=== PATIENT | female | born 1970 | race Caucasian/White ===

== ENCOUNTER 2016-09-10 21:33 | Emergency (ER) | payer MEDICARE ==
[2016-09-10 21:47] VITALS: BP 115/75; PULSE 88; RESP 20; TEMP 98.1; O2SAT 97
--- NOTE | 2016-09-10 21:58 | C.PDOC ---
History Of Present Illness 46 y/o female c/o left heel pain x 3 days. getting worse, not relieved by tylenol. no injury or trauma. no fever., no swelling to foot. Time Seen by Provider: 09/10/16 21:49 Chief Complaint (Nursing): Lower Extremity Problem/Injury History Per: Patient History/Exam Limitations: no limitations Onset/Duration Of Symptoms: Days (3) Current Symptoms Are (Timing): Worse Severity: Moderate Recent travel outside of the [place]: No Past Medical History Reviewed: Historical Data, Nursing Documentation, Vital Signs Vital Signs: Last Vital Signs Temp 98.1 F 09/10/16 21:43 Pulse 88 09/10/16 21:43 Resp 20 09/10/16 21:43 BP 115/75 09/10/16 21:43 Pulse Ox 97 09/10/16 22:23 - Medical History PMH: Anemia (post gastric bypass) Other Surgeries: tubal ligation Family History: States: Unknown Family Hx - Social History Hx Alcohol Use: No Hx Substance Use: No - Immunization History Hx Tetanus Toxoid Vaccination: No Hx Influenza Vaccination: Yes Hx Pneumococcal Vaccination: No Review Of Systems Constitutional: Negative for: Fever, Chills Musculoskeletal: Positive for: Foot Pain (left), Other (no calf tenderness,) Skin: Negative for: Rash Neurological: Negative for: Weakness, Numbness Physical Exam - Physical Exam Appears: Non-toxic, No Acute Distress Skin: Warm, Dry Head: Atraumatic, Normacephalic Extremity: Left: Bony Point Tenderness (left heel ), Painful To Bear Weight, Bilateral: No Pedal Edema, Normal Color And Temperature, Normal ROM, Pelvis- Stable Pulses: Left Dorsalis Pedis: Normal, Right Dorsalis Pedis: Normal Neurological/Psych: Oriented x3, Normal Speech, Normal Cognition, Normal Motor, Normal Sensation ED Course And Treatment O2 Sat by Pulse Oximetry: 97 Medical Decision Making Medical Decision Making: pt tender to heel on left and right side as well as sole:possible plantar faciitis or heel spur- willl tx with nsaids and podiatry outpatient Disposition Counseled Patient/Family Regarding: Diagnosis, Need For Followup, Rx Given - Disposition Referrals: Podiatry Clinic [Outside] Disposition: HOME/ ROUTINE Disposition Time: 22:20 Condition: STABLE Additional Instructions: Wear running shoes with thick insole. or low heeled shoe. Take ibuprofen for pain as directed (with food) Follow up with podiatry. Return to ER for swelling , redness, fever or any other concerns. Prescriptions: Ibuprofen [Motrin] 600 mg PO TID #30 tab Forms: Gen Discharge Inst [place] - Clinical Impression Clinical Impression: Pain of left heel
== END 2016-09-10 22:27 | disposition home or self-care (01) ==
LOC: C.ER 21:33
DX: M79.672 Pain in left foot (principal)
CPT/HCPCS: 96372; 99283; J1885

== ENCOUNTER 2017-12-17 22:57 | Emergency (ER) | payer MEDICARE ==
[2017-12-17 23:19] VITALS: RESP 20; TEMP 98.2; O2SAT 98
[2017-12-17] MEDS ORDERED: Sodium Chloride 0.9% 1,000 ML IV ONE (23:56)
[2017-12-18] MEDS ORDERED: Sodium Chloride 0.9% 1,000 ML ONE (00:02)
[2017-12-18 00:18] LABS: BASO # 0.1 K/uL (0.0-0.2); EOS # 0.1 K/uL (0.0-0.7); EOS % 0.9 % (0.0-4.0); HEMOGLOBIN 12.9 g/dL (11.0-16.0); LYMPH # 1.4 K/uL (1.0-4.3); LYMPH % 19.7 % (20.0-40.0); MEAN CELL VOLUME 86.9 fL (81.0-99.0); MEAN CORPUSCULAR HEMOGLOBIN 29.5 pg (27.0-31.0); MEAN CORPUSCULAR HGB CONC 33.9 g/dL (33.0-37.0); MEAN PLATELET VOLUME 8.8 fL (7.2-11.7); MONO # 0.7 K/uL (0.0-0.8); MONO % 10.6 % (0.0-10.0); NEUT # 4.8 K/uL (1.8-7.0); NEUT % 67.8 % (50.0-75.0); NRBC % 0.1 % (0.0-2.0); RBC 4.36 Mil/uL (3.80-5.20); RED CELL DISTRIBUTION WIDTH 14.1 % (11.5-14.5)
[2017-12-18 00:29] LABS: HCG,QUALITATIVE URINE NEGATIVE (NEGATIVE)
[2017-12-18 00:32] LABS: URINE BILIRUBIN NEGATIVE (NEGATIVE); URINE BLOOD NEGATIVE (NEGATIVE); URINE CLARITY Clear (Clear); URINE GLUCOSE (UA) NORMAL (Normal)
[2017-12-18 00:33] LABS: SQUAMOUS EPITHIAL 2 /hpf (0-5); URINE COLOR YELLOW (YELLOW); URINE LEUKOCYTE ESTERASE NEG Leu/uL (Negative); URINE PROTEIN NEGATIVE (NEGATIVE)
[2017-12-18 00:36] LABS: ALB/GLOB RATIO 1.2 (1.0-2.1); ALBUMIN 3.8 g/dL (3.5-5.0); ALT/SGPT 14 U/L (9-52); AST/SGOT 18 U/L (14-36); BLOOD UREA NITROGEN 7 mg/dL (7-17); CALCIUM 8.9 mg/dl (8.6-10.4); GFR NON-AFRICAN AMERICAN > 60; LIPASE 65 U/L (23-300)
--- NOTE | 2017-12-18 00:54 | C.PDOC ---
History Of Present Illness 47 year old female presents to emergency department with complaints of RUQ abdominal discomfort since yesterday after eating a few fries. States she had normal bowel movement earlier today. Denies history of biliary colic and nausea, vomiting, or diarrhea. Time Seen by Provider: 12/17/17 23:50 Chief Complaint (Nursing): Abdominal Pain History Per: Patient History/Exam Limitations: no limitations Onset/Duration Of Symptoms: Days Current Symptoms Are (Timing): Still Present Past Medical History Reviewed: Historical Data, Nursing Documentation, Vital Signs Vital Signs: Last Vital Signs Temp 98.2 F 12/17/17 23:12 Pulse 102 H 12/17/17 23:12 Resp 20 12/17/17 23:12 BP 132/75 12/17/17 23:12 Pulse Ox 98 12/17/17 23:12 - Medical History PMH: Anemia (post gastric bypass), Anxiety Family History: States: No Known Family Hx - Social History Hx Alcohol Use: No Hx Substance Use: No - Immunization History Hx Tetanus Toxoid Vaccination: No Hx Influenza Vaccination: Yes Hx Pneumococcal Vaccination: No Review Of Systems Except As Marked, All Systems Reviewed And Found Negative. Constitutional: Negative for: Fever, Chills Cardiovascular: Negative for: Chest Pain Respiratory: Negative for: Shortness of Breath Gastrointestinal: Positive for: Abdominal Pain (RUQ). Negative for: Nausea, Vomiting, Diarrhea Neurological: Negative for: Weakness, Numbness Physical Exam - Physical Exam Appears: Non-toxic, No Acute Distress Skin: Warm, Dry Head: Atraumatic, Normacephalic Eye(s): bilateral: Normal Inspection Oral Mucosa: Moist Chest: Symmetrical Cardiovascular: Rhythm Regular, No Murmur Respiratory: Normal Breath Sounds, No Rales, No Rhonchi, No Wheezing Gastrointestinal/Abdominal: Soft, No Tenderness, No Distention, No Guarding, No Rebound, Other (Saldana's sign; Negative for McBurney's ) Neurological/Psych: Oriented x3, Normal Speech Gait: Steady ED Course And Treatment - Laboratory Results Result Diagrams: 12/18/17 00:13 12/18/17 00:13 Lab Interpretation: Normal (LFT's wnl, UA neg.) Urine POC: Negative O2 Sat by Pulse Oximetry: 98 (RA) Pulse Ox Interpretation: Normal - Radiology CXR: Interpreted by Me CXR Interpretation: Yes: No Acute Disease - Other Rad abd x 2 X-Ray: Interpreted by Me (+FOS) Reevaluation Time: 01:13 Reassessment Condition: Improved Medical Decision Making Medical Decision Making: Impression: Abdominal pain Plan: --Labs --Obstructive X-Ray --IV Fluids --Toradol --Urinalysis epigastric colic, normal LFT's, +FOS prob contipation Disposition Doctor Will See Patient In The: Office Counseled Patient/Family Regarding: Studies Performed, Diagnosis - Disposition Referrals: [email or web address] [Outside] [facility] [Outside] [facility] [Outside] [facility] [address] [Outside] Blaine Nassar MD [Medical Doctor] - Disposition: HOME/ ROUTINE Disposition Time: :14 Condition: GOOD Additional Instructions: labs normal belly films ++ stool in colon Trial a laxative now re-evaluate your abdominal discomfort after evacuating 2-3 times diet and exercise changes outpatient follow-up as needed. Instructions: Constipation, Adult (DC) Forms: [email or web address] (Swazi) - Clinical Impression Clinical Impression: Abdominal pain, colicky - Scribe Statement The provider has reviewed the documentation as recorded by the [facility] Provider Attestation: All medical record entries made by the [facility]bib[place]i were at my direction and personally dictated by me. I have reviewed the chart and agree that the record accurately reflects my personal performance of the history, physical exam, medical decision making, and the department course for this patient. I have also personally directed, reviewed, and agree with the discharge instructions and disposition.
[2017-12-18 02:03] VITALS: BP 128/80; PULSE 82
--- NOTE | 2017-12-18 10:03 | RAD ---
Date of service: 12/18/2017 PROCEDURE: Radiographs of the chest and abdomen (obstructive series) HISTORY: abd pain COMPARISON: No prior. TECHNIQUE: AP radiograph of the chest, with upright and supine radiographs of the abdomen. FINDINGS: CHEST: Lungs: Minor bibasilar atelectasis Cardiovascular: Normal size heart. No pulmonary vascular congestion. Pleura: No pleural fluid. No pneumothorax. Other findings: None. ABDOMEN AND PELVIS: Bowel: Multiple metallic clips seen in the left upper and left mid abdomen. No evidence of acute mechanical bowel obstruction. No gross free intraperitoneal air. Unremarkable bowel gas pattern. No evidence of mechanical obstruction. Bones: Unremarkable. Other findings: None. IMPRESSION: Mild bibasilar atelectasis. No gross free intraperitoneal air. No evidence of mechanical bowel obstruction.
== END 2017-12-18 02:02 | disposition home or self-care (01) ==
LOC: C.ER 22:57
DX: R10.84 Generalized abdominal pain (principal)
CPT/HCPCS: 74022; 80053; 81001; 83690; 84703; 85025; 96361; 96374; 99284; J1885; J7030